=== PATIENT | male | born 1950 | race Caucasian/White ===

== ENCOUNTER 2018-03-01 18:37 | Emergency (ER) | payer MEDICARE ==
[~2018-03-01] VITALS: Ht 190.5 cm; Wt 131.5 kg
[~2018-03-01 18:37] MED LIST: ACTOS15 MG PO; ASA81BEC PO; ASPIRIN EC81 M1 PO; ASPIRIN81 M2 PO; B12; BACTRIM DS TAB1 EACH PO; CARISOPRODOL 3350 MG PO; CIPROFLOXACIN500 M1 PO; FLOMAX0.4 MG PO; FOLIC ACID 40400 MC1 PO; GLUCOPHAGE1000 MG PO; HYDROCODON-ACE1 EAC7 PO; HYDROCODON-ACE1 EAC8 PO; HYOSCYAMIN125 MCG/5 PO; LIPITOR20 MG PO; LISINOPRIL20 MG; LISINOPRIL20 MG PO; MAGOX 400400 MG PO; PERCOCET 5-3251 EACH PO; PIOGLITAZONE15 MG PO; POTASSIUM CITRATE PO; TAMSULOSIN HCL0.4 M1 PER TUBE; TAMSULOSIN HCL0.4 M1 PO; VICODIN 5-5001 EACH PO; VITAMIN B-12500 MC4 PO; VITAMIN B-12500 MCG PO
[2018-03-01] MEDS ORDERED: PREDNISONE 10 M10 M1 PO (22:38)
[2018-03-01] MEDS ORDERED: PERCOCET 5-3251 EACH PO (22:38)
[2018-03-01] MEDS ORDERED: FLEXERIL PO (22:38)
[2018-03-01 22:55] VITALS: BP 136/78
--- NOTE | 2018-03-02 10:57 | EKG ---
[place] [address] ELECTROCARDIOGRAM REPORT Name: HARRIET FIGUEROA Room: [facility]#: [id number] Admission: 03/01/18 Attend Phys: Discharge: 03/01/18 Date of : 46 Report #: [id number] THIS REPORT FOR: //name// [facility] ED Test Date: 2018-03-01 Test Time: 19:44:46 Pat Name: HARRIET FIGUEROA Department: Room: Gender: Monitoring Engineer: MALGORZATA Armstrong : 1950 Requested By: Adriane Swain Order Number: [id number] MD: Levar Aguila Measurements Intervals [place] Rate: 68 P: -2 VT: 186 QRS: 26 QRSD: 96 T: 34 QT: 388 QTc: 413 Interpretive Statements Sinus rhythm Low voltage, precordial leads Baseline wander in lead(s) V2 Compared to ECG 12/16/2013 10:51:11 no change Electronically Signed On 03-02-2018 10:57:41 CDT by Levar Aguila [email or web address] <ELECTRONICALLY SIGNED> By: Levar Aguila MD, [facility] 03/02/18 1057 43 43 Levar Aguila MD, [facility] /EPI
== END 2018-03-01 22:56 | disposition home or self-care (01) ==
LOC: M.ERS 18:37
DX: S46.911A Strain of unspecified muscle, fascia and tendon at shoulder and upper arm level, right arm, initial encounter (principal); E11.9 Type 2 diabetes mellitus without complications; I10 Essential (primary) hypertension; Z87.442 Personal history of urinary calculi; X58.XXXA Exposure to other specified factors, initial encounter; Y93.89 Activity, other specified; Y92.89 Other specified places as the place of occurrence of the external cause; Y99.8 Other external cause status

== ENCOUNTER 2018-03-03 16:49 | Emergency (ER) | payer MEDICARE ==
[~2018-03-03] VITALS: Ht 190.5 cm; Wt 176.9 kg
[~2018-03-03 16:49] MED LIST changes: +FLEXERIL PO; +PREDNISONE 10 M10 M1 PO
[2018-03-03] MEDS ORDERED: PERCOCET 5-3251 EACH PO (18:50)
[2018-03-03 19:22] VITALS: BP 139/75
== END 2018-03-03 19:24 | disposition home or self-care (01) ==
LOC: M.ERS 16:49
DX: M25.511 Pain in right shoulder (principal); I10 Essential (primary) hypertension; E11.9 Type 2 diabetes mellitus without complications; Z87.442 Personal history of urinary calculi

== ENCOUNTER 2018-03-05 04:00 | Inpatient (IN) | payer MEDICARE ==
[~2018-03-05] VITALS: Ht 190.5 cm; Wt 196.4 kg
[2018-03-05 04:13] VITALS: BP 200/92
[2018-03-05 04:46] LABS: ABSOLUTE BASOPHILS 0.1 thou/uL (0.0-0.2); ABSOLUTE LYMPHOCYTES 1.2 thou/uL (0.8-5.3); ABSOLUTE MONOCYTES 1.1 thou/uL (0.0-1.2); ABSOLUTE NEUTROPHILS 8.6 thou/uL (1.6-8.1); BASOPHILS 0.5 %; EOSINOPHILS 0.4 %; HEMATOCRIT 39.6 % (42.0-52.0); HEMOGLOBIN 13.3 gm/dL (14.0-18.0); LYMPHOCYTES 11.2 %; MCH 28.9 pg (26.0-34.0); MCHC 33.7 g/dL (28.0-37.0); MONOCYTES 9.9 %; MPV 8.2 fl. (7.2-11.1); NUCLEATED RBCS 0 /100WBC; PLATELET COUNT* 249 thou/uL (150-400); RBC 4.61 mil/uL (4.50-6.00); RDW-CV 15.6 % (10.5-14.5); WBC 11.1 thou/uL (4.0-11.0)
[2018-03-05 04:53] LABS: ANION GAP 10 mmol/L (7-16); BUN 31 mg/dL (7-18); CALCIUM 9.4 mg/dL (8.5-10.1); CHLORIDE 98 mmol/L (98-107); CO2 25 mmol/L (21-32); CREATININE 1.4 mg/dL (0.6-1.3); GLUCOSE 167 mg/dL (70-99); POTASSIUM 4.6 mmol/L (3.5-5.1); SODIUM 133 mmol/L (136-145)
[2018-03-05 05:00] LABS: ALBUMIN 3.2 g/dL (3.4-5.0); ALKALINE PHOSPHATASE 108 U/L (46-116); LIPASE 120 U/L (73-393); MAGNESIUM 1.7 mg/dL (1.8-2.4); SGOT 29 U/L (15-37); SGPT 41 U/L (30-65); TOTAL BILIRUBIN 0.9 mg/dL (<0.1-1.0); TOTAL PROTEIN 8.7 g/dL (6.4-8.2); TROPONIN-I LEVEL <0.06 ng/mL (<0.06)
[2018-03-05 06:00] VITALS: BP 144/86
--- NOTE | 2018-03-05 06:45 | NUR ---
LAUREN ARRIVED ON UNIT AT APPROX 0630. ALERT AND ORIENTED TIMES FOUR. SPOUSE AT BEDSIDE. SIGNIFICANT COMPLAINTS OF PAIN IN HIS RIGHT SHOULDER. GLASS FURNACE OPERATOR COMLETED DOCUMENTED. ORTHO CONSULT CALLED. PATIENT ABLE TO AMBULATE TO THE RESTROOM INDEPENDENTLY. UNABLE TO OBTAIN BED WEIGHT PATIENT IS SITTING ON THE EDGE OF THE BED.
[2018-03-05 06:49] VITALS: BP 190/100
[2018-03-05 07:30] VITALS: BP 155/72
--- NOTE | 2018-03-05 11:19 | NUR ---
Pt is A&O. Resides at home with his , very active and independent. No DME. No hx of HH or SNF. Ortho consulted. Pt states that he is too big to have an MRI. Goal is to return home once medically stable for dc. Following.
[2018-03-05 11:37] VITALS: BP 122/71
--- NOTE | 2018-03-05 14:25 | EKG ---
[place] [address] ELECTROCARDIOGRAM REPORT Name: HARRIET FIGUEROA Room: [address] IN .R.#: [id number] Admission: 03/05/18 Attend Phys: Charleen Martell MD Discharge: Date of : 46 Report #: [id number] THIS REPORT FOR: //name// [facility] ED Test Date: 2018-03-05 Test Time: 04:53:54 Pat Name: HARRIET FIGUEROA Department: Room: Gender: Advertising Copy Writer: : 1950 Requested By: Fei Martines Order Number: [id number] MD: Angel Wood Measurements Intervals [place] Rate: 78 P: 10 AR: 177 QRS: 19 QRSD: 97 T: 13 QT: 341 QTc: 389 Interpretive Statements Sinus rhythm Low voltage, precordial leads Compared to ECG 03/01/2018 19:44:46 No significant changes Electronically Signed On 03-05-2018 14:24:59 CDT by Angel Wood [email or web address] <ELECTRONICALLY SIGNED> By: Angel Wood MD, [facility] 03/05/18 1424 0453 [id number] Angel Wood MD, [facility] /EPI
--- NOTE | 2018-03-05 19:22 | NUR ---
PATIENT PROGRESSING TOWARDS GOALS. PAIN BETTER CONTROLLED THIS SHIFT. TOLERATING HIS DIET WELL WITHOUT ANY NAUSEA OR VOMIITNG. UP AD NESTOR IN ROOM WITH BATHROOM PRIVILEDGES. GAIT IS STEADY. HE DENIES ANY SOA. ORTHO IN THIS AFTERNOON TO DO STEROID INJECTION INTO PATIENTS RIGHT SHOULDER. CONSENT WAS SIGNED AND PLACED ON PATIENTS CHART. PLANNING FOR DC TOMORROW IF STABLE. HOURLY ROUNDING CHARTED. CALL LIGHT WITHIN REACH. WILL CONTIUE TO MONITOR.
[2018-03-05 20:00] VITALS: BP 147/91
[2018-03-06 00:04] VITALS: BP 168/91
--- NOTE | 2018-03-06 06:06 | NUR ---
ASSUMED PATIENT CARE AT 1900. PATIENT ALERT AND ORIENTED TIMES FOUR. COMPLAINTS OF PAIN, UNCONTOLLED WITH IV PAIN MEDICATION. DR NOTIFIED. NORMAT UP AD NESTOR AND IS ABLE TO AMBULATE TO THE NURSING STATION AND ALSO TO PERFORM ALL SELF CARE NEEDS INDEPENDENTLY. MECHANICAL MAINTENANCE INSTRUCTOR COMPLETED DOCUMENTED. HOURLY ROUNDING COMLETED CHATED.
[2018-03-06 07:30] VITALS: BP 149/82
[2018-03-06 07:50] LABS: HEMATOCRIT 40.7 % (42.0-52.0); HEMOGLOBIN 13.9 gm/dL (14.0-18.0); MCH 29.6 pg (26.0-34.0); MCHC 34.2 g/dL (28.0-37.0); MCV 86.7 fL (80.0-100.0); MPV 8.2 fl. (7.2-11.1); NUCLEATED RBCS 0 /100WBC; PLATELET COUNT* 251 thou/uL (150-400); RBC 4.69 mil/uL (4.50-6.00); RDW-CV 16.2 % (10.5-14.5); WBC 10.6 thou/uL (4.0-11.0)
[2018-03-06 07:57] LABS: CALCIUM 9.7 mg/dL (8.5-10.1); CREATININE 1.4 mg/dL (0.6-1.3); POTASSIUM 4.5 mmol/L (3.5-5.1)
[2018-03-06 08:27] LABS: ABSOLUTE LYMPHOCYTES 1.5 thou/uL (0.8-5.3); ABSOLUTE MONOCYTES 0.7 thou/uL (0.0-1.2); ABSOLUTE NEUTROPHILS 8.4 thou/uL (1.6-8.1); ANISOCYTOSIS 1+; PLATELET ESTIMATE ADEQUATE; POIKILOCYTOSIS 1+
[2018-03-06 12:26] VITALS: BP 156/89
[2018-03-06 15:38] VITALS: BP 120/75
--- NOTE | 2018-03-06 19:16 | NUR ---
PATIENT PARTIALLY PROGRESSING TOWARDS GOALS. PAIN BETTER CONTROLLED WITH PRN PAIN MEDICATIONS. NO COMPLAINTS OF SOA. NOTIFIED ORTHO ABOUT RIGHT UPPER EXTREMITY CT SCAN. PATIENT IS TOLERATING HIS DIET WELL WITHOUT NAUSEA OR VOMITING. HE IS UP AD NESTOR IN HIS ROOM WITH BATHROOM PRIVILEDGES. GAIT IS STEADY. IV CLOTTED OFF THIS AFTERNOON. 3 NURSES ATTEMPTED TO RESTART BUT UNSUCCESSFUL. ARTILLERY SPECIALIST NOTIFIED AND WILL COME ATTEMPT AN IV THIS EVENING. PATIENTS ASSISTED PATIENT IN TAKING A SHOWER THIS EVENING WELL. HOURLY ROUNDING CHARTED. CALL LIGHT WITHIN REACH. WILL CONTINUE TO MONITOR.
[2018-03-06 20:00] VITALS: BP 122/75
[2018-03-06 23:26] VITALS: BP 136/77
[2018-03-07 05:30] LABS: HEMATOCRIT 38.7 % (42.0-52.0); MCH 29.2 pg (26.0-34.0); MCHC 33.7 g/dL (28.0-37.0); MCV 86.7 fL (80.0-100.0); MPV 8.1 fl. (7.2-11.1); RBC 4.47 mil/uL (4.50-6.00); RDW-CV 15.5 % (10.5-14.5); WBC 12.3 thou/uL (4.0-11.0)
--- NOTE | 2018-03-07 06:16 | NUR ---
ALERT AND ORIENTED X 4, UP TO BATHROOM INDEPENDENTLY. IV PAIN MEDS X 2 DURING THIS SHIFT. IV STARTED BY HEALTH AND SAFETY SPECIALIST IN RT AC. CONT. TO MONITOR PAIN. NO SIGN OF DISTRESS AT THIS TIME. BED IN LOW POSITION, CALL LIGHT IN REACH.
[2018-03-07 07:30] VITALS: BP 156/78
[2018-03-07 09:29] LABS: CALCIUM 9.4 mg/dL (8.5-10.1); CREATININE 1.4 mg/dL (0.6-1.3); POTASSIUM 4.4 mmol/L (3.5-5.1)
[2018-03-07 10:21] VITALS: BP 156/78
[2018-03-07 11:57] VITALS: BP 161/84
--- NOTE | 2018-03-07 17:39 | NUR ---
ASSUMED CARE OF PATIENT ATER TRANSFER OF CARE FROM TELEMETRY VIA PACU. PATIENT ARRIVED ON THE UNIT AT 1535. ALERT AND ORIENTED X4, VSS ON 3 LITERS 02 NASAL CANULA. WOUNDS NOTED ON THE PATIENT UNDER THE PANUS AND ON THE LEFT THIGH, PICTURES TAKEN FOR DOCUMENTAION AND ARE IN THE CHART. PATIENT HAS HAD NO COMPLAINTS OF PAIN, NAUSEA OR SOA. HOURLY ROUNDS, CALL LIGHT WITHIN REACH, NURSING WILL CONTINUE TO MONITOR.
[2018-03-07 20:45] VITALS: BP 137/75
[2018-03-07 23:52] VITALS: BP 130/71
[2018-03-08 04:00] VITALS: BP 144/81
[2018-03-08 04:46] LABS: HEMATOCRIT 40.2 % (42.0-52.0); HEMOGLOBIN 12.8 gm/dL (14.0-18.0); MCH 29.1 pg (26.0-34.0); MCHC 31.9 g/dL (28.0-37.0); MCV 91.2 fL (80.0-100.0); MPV 8.5 fl. (7.2-11.1); RBC 4.41 mil/uL (4.50-6.00); RDW-CV 16.5 % (10.5-14.5); WBC 9.6 thou/uL (4.0-11.0)
[2018-03-08 04:47] LABS: CALCIUM 9.1 mg/dL (8.5-10.1); CREATININE 1.4 mg/dL (0.6-1.3); MAGNESIUM 1.9 mg/dL (1.8-2.4); POTASSIUM 4.6 mmol/L (3.5-5.1)
--- NOTE | 2018-03-08 04:59 | NUR ---
PATIENT REMAINS ALERT AND ORIENTED X4 THROUGHOUT SHIFT. VITAL SIGNS STABLE ON 3 LITERS OF OXYGEN. CAPNO IN PLACE. IV PATENT AND SALINE LOCKED IN THE LEFT HAND. TRANSFERS WITH ASSIST X1-2 TO CHAIR AND BEDSIDE COMMODE. BILATERAL CALF SCD'S IN PLACE. SLING APPLIED TO RIGHT ARM. REPOSITIONING SELF. CHOSE TO SLEEP IN RECLINER FOR THE NIGHT. PAIN MANAGED WITH PO MEDICATION PER ORDERS. DENIES NAUSEA. REPOSITIONING SELF. HOURLY ROUNDING COMPLETE. FALL PRECAUTIONS IN PLACE. BED AND CHAIR ALARM IN PLACE. CALL LIGHT WITHIN REACH. NURSING WILL CONTIUE TO MONITOR.
[2018-03-08 08:00] VITALS: BP 121/67
[2018-03-08 09:09] LABS: ANA INTERPRETATION Negative (Negative)
--- NOTE | 2018-03-08 14:38 | CON ---
[address] [address] CONSULTATION Name: HARRIET FIGUEROA Room: [address] IN .R.#: [id number] Admission: 03/05/18 Attend Phys: Charleen Martell MD Discharge: Date of : 46 Report #: [id number] THIS REPORT FOR: //name// CC: Levar Martell DATE OF SERVICE: 03/07/2018 ATTENDING PHYSICIAN: Dr. Charleen Martell. REASON FOR EVALUATION: Suspected deep infection involving right shoulder. HISTORY OF PRESENT ILLNESS: Chart reviewed, the patient examined. This is a 68-year-old with diabetes mellitus who had onset of shoulder pain several days prior to admission. He denies any antecedent injury. It is not clear if he has had any significant systemic signs or symptoms. No fevers, shaking chills, sweats. No anorexia. He has been seen in the Emergency Room on several occasions in the interim and was ultimately admitted. Imaging with CT showed cellulitis and possible myositis along the anterior shoulder and upper arm with gas deep to the anterior and lateral head of the deltoid. Sed rate was 100, high-sensitivity CRP was greater than 300. He is scheduled to undergo operative debridement. He was started initially on Unasyn empirically. At this point, he is not toxic, denies significant pulmonary or gastrointestinal related complaints. ALLERGIES: None known. MEDICATIONS: Include the Unasyn, oxycodone, prednisone, hydromorphone, pantoprazole, enoxaparin, amlodipine, p.r.n. analgesics. PAST MEDICAL HISTORY: In addition to the diabetes mellitus, hypertension, renal lithiasis. SOCIAL HISTORY: Nonsmoker, no ethanol. FAMILY HISTORY: Noncontributory. REVIEW OF SYSTEMS: As above. PHYSICAL EXAMINATION: GENERAL: He is morbidly obese. He is pleasant, cooperative, mild to moderate distress, sitting at the side of the bed. VITAL SIGNS: Temperature 98.2, pulse 98, respirations 16, blood pressure 161/84. SKIN: Warm, dry, no rashes. HEENT: Otherwise, [place] [address] CONSULTATION Name: HARRIET FIGUEROA Room: [address] IN [facility]#: [id number] Admission: 03/05/18 Attend Phys: Charleen Martell MD Discharge: Date of : 46 Report #: [id number] NECK: Supple. Right shoulder is palpably tender, although not exquisitely so. He is splinting it, minimizing movement. LUNGS: Diminished breath sounds. HEART: Regular. Borderline tachycardic. I do not appreciate any murmur. ABDOMEN: Soft, nontender. There are no peritoneal signs. GENITOURINARY AND RECTAL: Deferred. LABORATORY DATA: Initial CBC: White count 11.1, H and H 13.3 and 39.6, platelets of 249. Electrolytes: Sodium 133, potassium 4.6, chloride 98, bicarbonate 25, BUN and creatinine 31 and 1.3, glucose of 167. LFTs unremarkable. Albumin 3.2, total protein is 8.7. Chest x-ray: Mild bibasilar densities, raising question of atelectasis. Uric acid 5.8. Sed rate as noted above of 100. ASSESSMENT: Inflammatory process involving the right shoulder. I certainly do not have an alternative diagnosis, is concerning for infectious etiology, would raise question of a bacteremic spread, and has been started on Unasyn. There was no blood culture collected thus far, but we are going to do that. Certainly, there can be concern about Staph aureus in this setting. We will await findings at surgery and add incentive spirometry. <ELECTRONICALLY SIGNED> By: Elmer Gómez MD 03/08/18 1438 1224 [id number] Gómez MD /nt
[2018-03-08 15:57] VITALS: BP 133/76
--- NOTE | 2018-03-08 19:54 | NUR ---
I ASSUMED CARE OF THE PATIENT AT 0700. HE IS ALERT AND ORIENTED X4 AND IS UP AD NESTOR. BED IS IN THE LOW LOCKED POSITION AND CALL LIGHT IS IN REACH. PAIN IS MANAGED WITH PRN MEDS AND HOURLY ROUNDING HAS BEEN COMPLETED AND PATIENT NEEDS ARE MET. HE PREFERS TO BE CALLED 'JENNIFER.' IS AT THE BEDSIDE MOST OF THE DAY. DR PULLIAM AND DR CASILLAS WOULD LIKE TO MONITOR BLOOD CULTURES FOR ONE MORE DAY. HE HAD A BM ON 03/06/18 AND IS PASSING GAS. WILL CONTINUE TO MONITOR.
[2018-03-08 20:05] VITALS: BP 152/58
[2018-03-08 23:33] VITALS: BP 150/87
[2018-03-09] VITALS: BP 150/87
--- NOTE | 2018-03-09 03:12 | NUR ---
ASSUMED CARE OF PT AT 1900. PT IS ALERT AND ORIENTED. VSS. PERRLA. PT REPORTS ONGOING PAIN IN HIS RIGHT SHOULD. PT IS RECIEVING HYDROCODONE AND OXYCODONE FOR PAIN. AT 2240, PT WAS WALKING TO USE THE RESTROOM WHEN HE SLIPPED BY THE BATHROOM DOOR AND FELL. THERE WHERE NO OBSTACLES IN THE WAY, NOR WAS THE FLOOR WET. IN ADDITION, PT HAD HIS YELLOW NON SKID SOCKS ON. PT STATES, "I JUST SLIPPED". PT WAS UNABLE TO GET OFF THE FLOOR SO WE USED THE LIFT TO GET HIM BACK TO THE BED. PT WAS ASSESSED FOR INJURY. AN ABRASION WAS FOUND ON HIS LEFT LATERAL SIDE AND BELOW HIS LEFT SHOULDER BLADE. PT DENIED ANY MUSKOSKELETOL PAIN. ALSO, ROM OF MOTION STILL INTACT. AND SUPERVISER NOTIFIED.
[2018-03-09 03:25] VITALS: BP 144/76
[2018-03-09 07:50] VITALS: BP 151/84
--- NOTE | 2018-03-09 07:57 | OP ---
[address] [address] OPERATIVE REPORT Name: CAROLINAHARRIET Quinn Room: [address] IN M.R.#: [id number] Admission: 03/05/18 Attend Phys: Charleen Martell MD Discharge: Date of : 46 Report #: [id number] THIS REPORT FOR: //name// CC: Levar Martell DICTATED BY: Damien Null DATE OF SERVICE: 03/07/2018 PREOPERATIVE DIAGNOSES: Subdeltoid air of the right shoulder, possible septic arthritis and myositis. POSTOPERATIVE DIAGNOSES: Right shoulder massive rotator cuff tear, biceps subluxation, synovitis and doubtful septic arthritis with no purulence. SURGERY PERFORMED: Right shoulder arthroscopic lavage, biceps tenotomy, rotator cuff debridement, subacromial decompression and intraoperative cultures x 2. SURGEON: Uday Nichols DO. DYNAMICS AX CONSULTANT: Damien Null DO. ANESTHESIA: General. ESTIMATED BLOOD LOSS: 2 mL. SPECIMENS: Cultures x 2 from a right shoulder joint. COMPLICATIONS: None. DRAINS: None. CONDITION: The patient is stable to PACU. INDICATIONS: The patient is a 68-year-old male who has had a little over a week of right shoulder pain, which has been worsening. He is admitted to [facility] for this pain. Initially, he was found to have a white blood cell elevation; however, CT one day after a shoulder injection revealed gas in the subdeltoid area, possible myositis. His inflammatory markers were also elevated, and his white count eventually elevated as well. Due to the findings on the CT and continued pain in the right shoulder, we recommended an arthroscopic right shoulder irrigation and debridement. Discussing the risks, benefits, complications, alternatives, indications, he says he is willing to proceed. Consent [place] [address] OPERATIVE REPORT Name: HARRIET FIGUEROA Room: [address] IN [facility].#: [id number] Admission: 03/05/18 Attend Phys: Charleen Martell MD Discharge: Date of : 46 Report #: [id number] FINDINGS: Surgeon's inspection of the right shoulder arthroscopically showed no gross purulence. There was extensive synovitis and inflammatory tissue as well as a massive rotator cuff tear of the supraspinatus, infraspinatus. There is also a subscapularis tear and subsequent subluxation of the biceps tendon. Cartilage was overall in good condition. No evidence of acute chondrolysis. There is extensive bursal tissue in the subacromial space with no evidence of purulence there as well. DESCRIPTION OF PROCEDURE: The patient was seen in preoperative holding area, and the operative site initialed by surgeon. He was brought back to operative suite, placed on a well-padded table in supine position. General anesthesia was induced. The patient was then positioned on the left lateral decubitus position with the operative side up. All extremities were well padded and supported with a beanbag. Axillary roll was placed. The arm was positioned in the arthroscopic arm mejia, and the right shoulder was sterilely prepped and draped in normal fashion. Timeout was performed in usual fashion, all attendants were in agreement. A 15 blade scalpel was used to make a posterior portal incision. A blunt trocar was used to access the glenohumeral joint. Camera was introduced, and the shoulder was insufflated with normal saline. There is no joint effusion and so some of the synovial lavage fluid was placed into a specimen cup for culture. Two cultures were obtained. Diagnostic arthroscopy was performed with the above-mentioned findings. A spinal needle was used for localization of the anterior portal site. A 15 blade scalpel was used to incise the skin. Blunt trocar was used to access the joint anteriorly. Shaver was introduced, and a synovectomy was performed as well as a debridement of the rotator cuff tear from the joint surface. The arthroscopic scissors was introduced, and a biceps tenotomy was performed. The camera was removed, and blunt trocar was used to access the subacromial space. Camera was introduced, and the space was insufflated with normal saline. Spinal needle was used for localization of lateral portal site, and a 15 blade scalpel was used to incise the skin. Blunt trocar was used to access the space. A shaver was introduced, and a subacromial decompression was performed. A radiofrequency ablator was also used for hemostasis. Extensive bursal tissue was removed showing the large rotator cuff tear deep to the bursal tissue. Once again, no evidence of infectious process in this area. Rotator cuff tear was further debrided. The shoulder was drained of saline, and instruments were removed. Skin incisions were closed with a 4-0 nylon in simple interrupted fashion. Dressings were placed in the form of Xeroform gauze, 4 x 4s, ABDs and tape. The patient was awoken and brought to PACU in stable fashion. Sponge and needle counts were correct x 2. Dr. Nichols was present throughout the critical aspects of surgery. The patient tolerated the procedure well. <ELECTRONICALLY SIGNED> By: Uday Nichols DO 03/09/18 0757 1417 Mary Nichols DO /nt
--- NOTE | 2018-03-09 11:35 | NUR ---
Nutrition: Pt seen for high BMI. Wt: 433#. Wounds under panus. He stated his DM is under control. He follows a low Na diet at home d/t CKD III. He wants to add yogurt to lunch - RD ordered for him. He also wound like less CHOs with his meals. Discussed CHO count diet order - pt agrees. RD will order 2gm Na diet with a CHO count added. Otherwise, appears at mild nutrition risk. BMI is skewing risk. Will follow up per protocol.
[2018-03-09 16:05] VITALS: BP 149/80
--- NOTE | 2018-03-09 16:34 | NUR ---
ALDO faxed information to [facility] fax [phone] to check benefits for IV antibiotics for home and faxed initial referral information to [facility] [phone] ph [phone] for HH nurse IV abx care. ALDO received call back from [facility] and spoke with Royce [phone] who stated pt would be responsible to pay $261.77 per week. ALDO received call back from Tana at [facility] who said they received referral and could accept. ALDO spoke with pt and pt to provide information about cost and pt and pt opted to go to OP for IV antibiotics even if order remains for pt to go to OP IV abx every 8 hrs. ALDO called OP infusion at [phone] and left a message for referral. SW to continue to follow...no other dc needs besides OP IV antibiotics. If pt changes his mind or needs HH and home infusion instead, [facility] and [facility] have the referrals and info needed to provide services. Pt first preference is OP IV abx.
--- NOTE | 2018-03-09 18:58 | NUR ---
PT VSS THIS SHIFT. PT APPROPRIATELY CALLS OUT FOR PAIN MANAGEMENT. PT TOLERATING DIET AND RA THIS SHIFT. PT SHOWS NO COMPLICATIONS FROM FALL ON THE PREVIOUS SHIFT. PT ABLE TO AMBULATE WITH MAXIMUM ASSIST THIS SHIFT. PT HAS NO GI/ CONCERNS THIS SHIFT
[2018-03-09 20:00] VITALS: BP 145/85
[2018-03-10 00:30] VITALS: BP 157/85
[2018-03-10 03:54] LABS: HEMOGLOBIN 12.4 gm/dL (14.0-18.0); MCH 29.1 pg (26.0-34.0); MCHC 34.4 g/dL (28.0-37.0); MPV 7.6 fl. (7.2-11.1); RBC 4.25 mil/uL (4.50-6.00); RDW-CV 15.4 % (10.5-14.5); WBC 10.8 thou/uL (4.0-11.0)
[2018-03-10 03:55] LABS: MCV 84.7 fL (80.0-100.0)
[2018-03-10 04:05] LABS: CALCIUM 8.9 mg/dL (8.5-10.1); CREATININE 1.4 mg/dL (0.6-1.3); MAGNESIUM 1.8 mg/dL (1.8-2.4); POTASSIUM 4.1 mmol/L (3.5-5.1)
--- NOTE | 2018-03-10 05:23 | NUR ---
ASSUMED PT CARE AT 1930, PT IS ON RA SATTING MID TO HIGH 90'S. PT IS UP WITH ONE TO THE BR. PT STATES HE WANTED TO SLEEP IN THE RECLINER TONIGHT. DESPITE EDUCATION. PT HAS A BANDAGE TO RIGHT SHOULDER. DRESSING IS CDI. PT C/O PAIN THORUGHOUT THE SHIFT. PRN PAIN MEDICATIONS GIVEN PER DEC. CALL LIGHT IN REACH, CHAIR ALARM ON. HOURLY ROUNDING COMPLETED FOR PT SAFETY.
[2018-03-10 08:00] VITALS: BP 135/73
--- NOTE | 2018-03-10 10:23 | NUR ---
Discussed disposition with Pt. Informed that he would not be able to do outpt infusion d/t his IVABX needing to be administered q 8hrs. Informed that only options are for him to do home with IVABX or skilled. Pt's to be here later this morning, CM to go back and discuss options when she arrives. Following.
[2018-03-10 16:00] VITALS: BP 167/92
[2018-03-10 20:40] VITALS: BP 126/73
--- NOTE | 2018-03-10 20:55 | NUR ---
I ASSUMED CARE OF THE PATIENT AT 0700. HE IS ALERT AND ORIENTED X4 AND UP WITH STAND BY ASSIST. HOURLY ROUNDING WAS COMPLETED AND PATIENT NEEDS WERE MET. PAIN IS MANAGED WITH PRN PAIN MEDS. IS AT THE BEDSIDE. BED IS IN THE LOW LOCKED POSITION AND PATIENT SLEEPS IN THE RECLINER. PATIENT WILL NEED A PICC LINE TO BE PLACED AND WITH NO POLICY, IT IS ONLY DONE M-F. CASE MANAGEMENT IS WORKING ON PLACEMENT THAT WILL BE COVERED BY INSURANCE FOR ANTIBIOTIC TREATMENT. WILL CONTINUE TO MONITOR.
--- NOTE | 2018-03-11 04:36 | NUR ---
PATIENT HAS REMAINED ALERT AND ORIENTED X 4 THROUGHOUT THE SHIFT. HAS SLEPT IN RECLINER TONIGHT. FOUND AT TIMES WITH LEGS DOWN. NOTING BILAT LE EDEMA. PATIENT ENCOURAGED TO KEEP FOOT SUPPORT UP OR TRY SLEEPING IN THE BED. DID NOT WANT TO SLEEP IN BED AND AGREED TO KEEP LEGS UP. REFUSED SCD'S. RIGHT SHOULDER DRESSING FALLING OFF. REPLACED WITH THREE LARGE BANDAIDS OVER THE 3 SITES WITH SUTURES. NO DRAINAGE. MEDICATED FOR PAIN X 1. ANTIBIOTICS PROVIDED PER ORDERS. VITAL SIGNS STABLE. CONTINUE TO MONITOR.
[2018-03-11 07:45] VITALS: BP 136/72
[2018-03-11 16:00] VITALS: BP 141/67
--- NOTE | 2018-03-11 16:55 | NUR ---
PATIENT REMAINS ALERT AND ORIENTED. PAIN POORLY CONTROLLED ON PO THIS AFTERNOON. PAIN COMPLETELY RELIEVED WITH DILAUDID. NEW IV PLACED IN LEFT HAND. PATIENT TO GET PICC TOMORROW. WORKED WITH PT. SHOWERED THIS AFTERNOON. BED/CHAIR ALARM IN USE. PATIENT EDUCATED ON FALL PREVENTION. SSI GIVEN ORDERED. TOLERATING MEALS. WILL CONTINUE TO MONITOR.
[2018-03-11 19:45] VITALS: BP 150/83
--- NOTE | 2018-03-12 04:48 | NUR ---
PATIENT HAS REMAINED ALERT AND ORIENTED X 4 THROUGHOUT THE SHIFT AND RESTING QUIETLY ON HOURLY ROUNDS. WAS ABLE TO REST FOR SEVERAL HOURS IN THE BED TONIGHT. PRESENTLY SLEEPING IN RECLINER. [facility]. RIGHT SHOULDER BANDAIDS CLEAN AND DRY X 3. USING SLING RUE. MEDICATED FOR PAIN X 2 OF THIS WRITING WITH IV PAIN MEDICATION TO GOOD EFFECT. ANTIBIOTICS PER ORDERS. VITAL SIGNS STABLE. CONTINUE TO MONITOR.
[2018-03-12 05:07] LABS: HEMATOCRIT 37.1 % (42.0-52.0); HEMOGLOBIN 12.3 gm/dL (14.0-18.0); MCH 28.4 pg (26.0-34.0); MCHC 33.1 g/dL (28.0-37.0); MCV 85.8 fL (80.0-100.0); MPV 7.6 fl. (7.2-11.1); RBC 4.33 mil/uL (4.50-6.00); RDW-CV 15.4 % (10.5-14.5); WBC 12.6 thou/uL (4.0-11.0)
[2018-03-12 05:24] LABS: ALBUMIN 2.5 g/dL (3.4-5.0); CALCIUM 8.5 mg/dL (8.5-10.1); CREATININE 1.2 mg/dL (0.6-1.3); MAGNESIUM 1.6 mg/dL (1.8-2.4); POTASSIUM 4.3 mmol/L (3.5-5.1); TOTAL BILIRUBIN 0.8 mg/dL (<0.1-1.0); TOTAL PROTEIN 6.9 g/dL (6.4-8.2)
[2018-03-12 08:00] VITALS: BP 142/68
[2018-03-12] MEDS ORDERED: CEFAZOLIN2 GM/50 M2 IV (12:14)
[2018-03-12] MEDS ORDERED: HYDROCODONE-AP1 EAC6 PO (12:15)
[2018-03-12 12:16] VITALS: BP 142/68
--- NOTE | 2018-03-12 12:37 | NUR ---
PT.BACK FROM PICC LINE INSERTION. LINNETTE,RN SAID XRAY CONFIRMS SY. CM SPOKE WITH PT. ABOUT GOING TO SNF FOR IVAB. HE SAID HIS FIRST CHOICE WOULD BE [facility]. HE HAS RECOMMENDATIONS FROM A FRIEND. CM SPOKE WITH [facility] AND FAXED HER REFERRAL. PT.IS READY FOR DISCHARGE TODAY.
--- NOTE | 2018-03-12 13:19 | NUR ---
[facility] SAID THEY CAN ACCEPT PT.TO A SKILLED BED TODAY. INFORMED HER NEXT IV [facility] WILL BE AT 10PM. THEIR [facility] WILL PICK HIM UP AT 3:00. WILL FAX ORDERS TO [facility]. CHART COPIED TO GO WITH PT. NURSING WILL CALL REPORT. PT.INFORMED. HE WILL LET HIS KNOW.
--- NOTE | 2018-03-12 14:14 | NUR ---
OUT TO DESK TO ASK ABOUT DISCHARGE PLANS. EDUCATED ON DISCHARGE AND THAT [facility] CAN ACCEPT HIM AND THEY WILL PICK HIM UP AT 1500. ANSWERED QUESTIONS ABOUT CLOTHING,MEDS,ETC. GAVE HER THE PHONE NUMBER FOR [facility].
--- NOTE | 2018-03-12 14:30 | NUR ---
ARRIVED TO INFUSION PER [facility]. TRANSFERED SELF TO CART. SPOKE WITH PT REGUARDING PICC RISK AND BENIFIT. VOICED UNDERSTANDING AND CONSENT SIGNED. ORDER NOTED. LEFT UPPER BASILIC IDENTIFIED WITH ULTRASOUND AND NOTED TO BE WIDLEY PATENT. SINGLE LUMAN POWER PICC PLACED WTIH OUT DIFFICULTY TO LEFT UPPER BASILIC PER HOSPITAL POLICY. LINE HAS GOOD BRISK BLOOD RETURN AND EASY FLUSH. LINE WAS NOT TRIMMED AND ADVANCED TO 55CM AND HUBBED. Ampex 3CG USED. UNABLE TO PRINT FROM THUMB DRIVE SO X-RAY TAKEN. SHOWS TIP IS SHORT. LINE ADVANCED TO HUB AND RE X-RAY. 2ND XRAY REPORT SHOWS TIP IN OK POSITION FOR USE. LINE WAS SECURED AND RELEASED FOR USE. GARETH GAMING AWARE.
--- NOTE | 2018-03-12 14:58 | NUR ---
REPORT CALLED TO ELSI AT THE [facility].
--- NOTE | 2018-03-12 15:15 | NUR ---
PATIENT DISCHARGED TO [facility] AT THIS TIME VIA [facility]. PICC IN PLACE AND FUNCTIONING. 1400 ANCEF INFUSED PRIOR TO DC. PERIPHERAL IV DC'D. REPORT TO ELSI. WENT TO [facility] BEFORE PATIENT TO DO PAPERWORK. COPY OF CHART SENT.
== END 2018-03-12 15:15 | DRG 463 ==
LOC: M.ERS 04:00 → M.2W 05:41 → M.TBA-ER 05:41 → M.2W 06:31 → M.ORTHSURG 03-07 16:52
PROVIDERS: Emergency Medicine Emergency Medical Services; Family Medicine; Internal Medicine; Orthopaedic Surgery; ADMIT Internal Medicine
PROC: 0L9 Tendons, Drainage (ICD-10-PCS; 2018-03-07)
PROC: 0JBD0ZZ Excision of Right Upper Arm Subcutaneous Tissue and Fascia, Open Approach (ICD-10-PCS; 2018-03-07)
PROC: 05H433Z Insertion of Infusion Device into Left Innominate Vein, Percutaneous Approach (ICD-10-PCS; principal; 2018-03-12)
DX: M75.01 Adhesive capsulitis of right shoulder (principal); G93.40 Encephalopathy, unspecified; E87.1 Hypo-osmolality and hyponatremia; M00.211 Other streptococcal arthritis, right shoulder; Z68.43 Body mass index [BMI] 50.0-59.9, adult; I12.9 Hypertensive chronic kidney disease with stage 1 through stage 4 chronic kidney disease, or unspecified chronic kidney disease; N18.3 Chronic kidney disease, stage 3 (moderate); E11.22 Type 2 diabetes mellitus with diabetic chronic kidney disease; E66.01 Morbid (severe) obesity due to excess calories; M75.101 Unspecified rotator cuff tear or rupture of right shoulder, not specified as traumatic; B95.4 Other streptococcus as the cause of diseases classified elsewhere; Z87.442 Personal history of urinary calculi; Z79.899 Other long term (current) drug therapy; Z79.82 Long term (current) use of aspirin

== ENCOUNTER 2020-05-13 20:43 | Emergency (ER) | payer MEDICARE ==
[~2020-05-13] VITALS: Ht 190.5 cm; Wt 200.5 kg
[~2020-05-13 20:43] MED LIST changes: +CEFAZOLIN2 GM/50 M2 IV; +HYDROCODONE-AP1 EAC6 PO
[2020-05-13] MEDS ORDERED: IBUPROFEN 800800 M1 PO (23:33)
[2020-05-13] MEDS ORDERED: FLEXERIL PO (23:33)
[2020-05-13] MEDS ORDERED: NORCO 5-325 TA1 EAC2 PO (23:33)
[2020-05-13] MEDS ORDERED: LIDODERM1 EACH TOP (23:33)
[2020-05-13 23:47] VITALS: BP 114/55
== END 2020-05-13 23:49 | disposition home or self-care (01) ==
LOC: M.ERS 20:43
DX: M54.5 Low back pain (principal); R07.81 Pleurodynia; I10 Essential (primary) hypertension; E11.9 Type 2 diabetes mellitus without complications; Z87.442 Personal history of urinary calculi; W18.39XA Other fall on same level, initial encounter; Y93.89 Activity, other specified; Y92.89 Other specified places as the place of occurrence of the external cause; Y99.8 Other external cause status

== ENCOUNTER 2020-06-07 09:58 | Emergency (ER) | payer MEDICARE ==
[~2020-06-07] VITALS: Ht 190.5 cm; Wt 158.8 kg
[~2020-06-07 09:58] MED LIST changes: +IBUPROFEN 800800 M1 PO; +LIDODERM1 EACH TOP; +NORCO 5-325 TA1 EAC2 PO
[2020-06-07] MEDS ORDERED: TRAMADOL 50 MG50 MG PO (10:15)
[2020-06-07] MEDS ORDERED: PIOGLITAZONE30 MG PO (10:15)
[2020-06-07] MEDS ORDERED: LEVO-T25 MCG PO (10:15)
[2020-06-07] MEDS ORDERED: DESYREL150 MG PO (10:15)
[2020-06-07] MEDS ORDERED: MAGNESIUM250 M1 PO (10:16)
[2020-06-07] MEDS ORDERED: FOLIC ACID1 MG PO (10:16)
[2020-06-07] MEDS ORDERED: OSTERA TABLET1 EAC1 PO (10:16)
[2020-06-07] MEDS ORDERED: B-125000 MC1 SUBLING (10:16)
[2020-06-07] MEDS ORDERED: LISINOPRIL-HCT1 EACH PO (10:16)
[2020-06-07] MEDS ORDERED: ASA81BEC PO (10:17)
[2020-06-07 10:47] LABS: ABSOLUTE BASOPHILS 0.1 thou/uL (0.0-0.2); ABSOLUTE EOSINOPHILS 0.2 thou/uL (0.0-0.7); ABSOLUTE LYMPHOCYTES 1.4 thou/uL (0.8-5.3); ABSOLUTE MONOCYTES 0.4 thou/uL (0.0-1.2); ABSOLUTE NEUTROPHILS 3.1 thou/uL (1.6-8.1); BASOPHILS 1.4 %; EOSINOPHILS 3.3 %; HEMATOCRIT 43.6 % (42.0-52.0); HEMOGLOBIN 15.4 gm/dL (14.0-18.0); LYMPHOCYTES 26.4 %; MCH 31.4 pg (26.0-34.0); MCHC 35.4 g/dL (28.0-37.0); MCV 88.6 fL (80.0-100.0); MONOCYTES 7.9 %; MPV 8.2 fl. (7.2-11.1); NUCLEATED RBCS 0 /100WBC; PLATELET COUNT* 220 thou/uL (150-400); RBC 4.92 mil/uL (4.50-6.00); RDW-CV 14.2 % (10.5-14.5); WBC 5.1 thou/uL (4.0-11.0)
[2020-06-07 10:54] LABS: URINE BLOOD 3+ (Negative); URINE CLARITY SL CLOUDY; URINE COLOR YELLOW; URINE GLUCOSE-RANDOM NEGATIVE (Negative); URINE KETONES NEGATIVE (Negative); URINE LEUKOCYTES-REFLEX NEGATIVE (Negative); URINE NITRITE-REFLEX NEGATIVE (Negative); URINE PROTEIN NEGATIVE (Negative); URINE SPECIFIC GRAVITY 1.025 (1.005-1.030); URINE UROBILINOGEN 0.2 E.U./dl (0.2-1.0)
[2020-06-07 10:55] LABS: CALCIUM 9.3 mg/dL (8.5-10.1); POTASSIUM 4.6 mmol/L (3.5-5.1)
[2020-06-07 10:56] LABS: ICTOTEST (BILI CONFIRMATORY) Negative (Negative); URINE BILIRUBIN 1+ (Negative)
[2020-06-07 10:59] LABS: TOTAL BILIRUBIN 1.5 mg/dL (<0.1-1.0); TOTAL PROTEIN 8.3 g/dL (6.4-8.2)
[2020-06-07 11:07] LABS: SQUAMOUS 0-3 Few /LPF (0-3)
[2020-06-07 11:08] LABS: CASTS None Seen /LPF (None Seen); CRYSTALS None Seen /LPF (None Seen); MUCUS 0-3 Light strn/LPF (None Seen); URINE RBC >20 Many /HPF (0-2); URINE WBC-REFLEX 0-5 Rare /HPF (0-5)
--- NOTE | 2020-06-07 14:21 | EKG ---
[place] [address] ELECTROCARDIOGRAM REPORT Name: CAROLINAHARRIET Quinn Francheska Room: [facility]#: [id number] Admission: 06/07/20 Attend Phys: Discharge: Date of : 46 Date of Service: 06/07/20 1055 Report #: [id number] THIS REPORT FOR: //name// [facility] ED Test Date: 2020-06-07 Test Time: 10:55:19 Pat Name: HARRIET FIGUEROA Department: Room: Gender: Dry Talc Racker: : 1950 Requested By: Fei Martines Order Number: [id number] MD: Levar Aguila Measurements Intervals [place] Rate: 72 P: 10 KS: 178 QRS: 37 QRSD: 104 T: 31 QT: 366 QTc: 401 Interpretive Statements Sinus rhythm Compared to ECG 03/05/2018 04:53:54 No significant changes Electronically Signed On 06-07-2020 14:21:40 CDT by Levar Aguila [email or web address] <ELECTRONICALLY SIGNED> By: Levar Aguila MD, [facility] 06/07/20 1421 1055 1055 Levar Aguila MD, FAC /EPI
[2020-06-07 16:42] VITALS: BP 144/80
== END 2020-06-07 16:44 | disposition short-term general hospital (02) ==
LOC: M.ERS 09:58
PROVIDERS: Emergency Medicine Emergency Medical Services
DX: N19 Unspecified kidney failure (principal); N20.0 Calculus of kidney; I10 Essential (primary) hypertension; E11.9 Type 2 diabetes mellitus without complications; Z87.442 Personal history of urinary calculi

== ENCOUNTER 2020-10-29 11:31 | Inpatient (IN) | payer MEDICARE ==
[~2020-10-29] VITALS: Ht 190.5 cm; Wt 185.2 kg
--- NOTE | ~2020-10-29 | CON ---
[facility] [address] [place] [address] CONSULTATION Name: HARRIET FIGUEROA Room: [address] IN .R.#: [id number] Admission: 10/29/20 Attend Phys: Makayla Teresa Discharge: Date of : 46 Report #: [id number] THIS REPORT FOR: cc: Clint Nolasco Meng, Zhao ~ Arakelov, Alexandr V. MD DATE OF SERVICE: 10/30/2020 REQUESTING PHYSICIAN: Dr. Haines. REASON FOR CONSULTATION: Acute kidney injury. HISTORY OF PRESENT ILLNESS: The patient is a very pleasant 70-year-old gentleman who is actually in my office ____. He follows with me for chronic kidney disease stage 3. He has baseline of creatinine around 2. He came in with chief complaints of edema and erythema of left leg. It started several days prior to admission. He was examined and diagnosed with cellulitis. PAST MEDICAL HISTORY: 1. Diabetes mellitus type 2. 2. Hypertension. 3. Obesity. 4. Chronic kidney disease stage 3. FAMILY HISTORY: Noncontributory. SOCIAL HISTORY: No tobacco, no alcohol abuse. MEDICATIONS: Reviewed. REVIEW OF SYSTEMS: Positive for symptoms mentioned earlier. PHYSICAL EXAMINATION: GENERAL: Awake, alert, oriented, in no acute distress. VITAL SIGNS: Blood pressure reviewed and stable. HEENT: Pupils round. NECK: Fatty. LUNGS: Clear. CARDIOVASCULAR: Regular rate. ABDOMEN: Obese, soft. EXTREMITIES: Lower extremities with chronic edema. Left leg has below-knee with some superficial wounds and some cellulitis. ASSESSMENT: [facility] [address] [place] [address] CONSULTATION Name: CAROLINAHARRIET Francheska Room: [address] IN [facility].#: [id number] Admission: 10/29/20 Attend Phys: Makayla Teresa Discharge: Date of : 46 Report #: [id number] 1. Acute kidney injury, resolved. His creatinine came down from 2.5 to 2.0. This is his baseline. 2. Chronic kidney disease stage 3. 3. Diabetes mellitus type 2. 4. Obesity. PLAN: 1. Continue with antibiotics. 2. P.o. hydration. I will sign off ____ baseline. Follow up with me in my office. By: 1144 [id number] George MD /akua
[~2020-10-29 11:31] MED LIST changes: +B-125000 MC1 SUBLING; +DESYREL150 MG PO; +FOLIC ACID1 MG PO; +LEVO-T25 MCG PO; +LISINOPRIL-HCT1 EACH PO; +MAGNESIUM250 M1 PO; +OSTERA TABLET1 EAC1 PO; +PIOGLITAZONE30 MG PO; +TRAMADOL 50 MG50 MG PO
[2020-10-29 11:38] VITALS: BP 128/75
[2020-10-29] MEDS ORDERED: PACERONE100 MG PO (11:59)
[2020-10-29 12:25] LABS: ABSOLUTE BASOPHILS 0.1 thou/uL (0.0-0.2); ABSOLUTE LYMPHOCYTES 1.1 thou/uL (0.8-5.3); ABSOLUTE MONOCYTES 0.8 thou/uL (0.0-1.2); BASOPHILS 0.9 %; EOSINOPHILS 0.4 %; HEMATOCRIT 44.1 % (42.0-52.0); HEMOGLOBIN 15.2 gm/dL (14.0-18.0); LYMPHOCYTES 13.2 %; MCH 30.7 pg (26.0-34.0); MCHC 34.6 g/dL (28.0-37.0); MCV 88.9 fL (80.0-100.0); MONOCYTES 10.5 %; MPV 8.3 fl. (7.2-11.1); NUCLEATED RBCS 0 /100WBC; PLATELET COUNT* 193 thou/uL (150-400); RBC 4.96 mil/uL (4.50-6.00); RDW-CV 14.4 % (10.5-14.5)
[2020-10-29 12:32] LABS: CREATININE 2.5 mg/dL (0.6-1.3); POTASSIUM 4.1 mmol/L (3.5-5.1)
[2020-10-29 12:47] LABS: ALBUMIN 3.5 g/dL (3.4-5.0); TOTAL PROTEIN 8.5 g/dL (6.4-8.2)
[2020-10-29 13:13] LABS: APTT 31.6 Seconds (25.0-31.3); INR 1.1; PROTIME 11.2 Seconds (9.20-11.50)
--- NOTE | 2020-10-29 16:27 | EKG ---
[place] [address] ELECTROCARDIOGRAM REPORT Name: CAROLINAHARRIET Quinn Francheska Room: [place] [address] ADM IN M.R.#: [id number] Admission: 10/29/20 Attend Phys: Cm Haines Discharge: Date of : 46 Date of Service: 10/29/20 1144 Report #: [id number] THIS REPORT FOR: //name// [facility] ED Test Date: 2020-10-29 Test Time: 11:44:03 Pat Name: HARRIET FIGUEROA Department: Room: [facility] Gender: M Evaporator Supervisor: JAROD : 1950 Requested By: Fei Martines Order Number: [id number] MD: Bhavin Robison Measurements Intervals [place] Rate: 80 P: 27 FL: 189 QRS: 48 QRSD: 99 T: 30 QT: 345 QTc: 398 Interpretive Statements Sinus rhythm Compared to ECG 06/07/2020 10:55:19 No significant changes Electronically Signed On 10-29-2020 16:27:38 MARKETING STRATEGIST by Bhavin Robison [email or web address] <ELECTRONICALLY SIGNED> By: Bhavin Robison MD, FACC 10/29/20 1627 1144 1144 Bhavin Robison MD, [facility] /EPI
[2020-10-29 19:27] VITALS: BP 109/52
[2020-10-29 21:32] LABS: ABSOLUTE BASOPHILS 0.1 thou/uL (0.0-0.2); ABSOLUTE EOSINOPHILS 0.1 thou/uL (0.0-0.7); ABSOLUTE LYMPHOCYTES 1.1 thou/uL (0.8-5.3); ABSOLUTE MONOCYTES 0.8 thou/uL (0.0-1.2); ABSOLUTE NEUTROPHILS 6.3 thou/uL (1.6-8.1); BASOPHILS 0.6 %; EOSINOPHILS 0.7 %; HEMATOCRIT 45.3 % (42.0-52.0); HEMOGLOBIN 15.7 gm/dL (14.0-18.0); LYMPHOCYTES 13.4 %; MCH 30.6 pg (26.0-34.0); MCHC 34.6 g/dL (28.0-37.0); MCV 88.5 fL (80.0-100.0); MONOCYTES 9.9 %; MPV 8.1 fl. (7.2-11.1); NUCLEATED RBCS 0 /100WBC; PLATELET COUNT* 201 thou/uL (150-400); POLYS 75.4 %; RBC 5.11 mil/uL (4.50-6.00); RDW-CV 14.5 % (10.5-14.5); WBC 8.3 thou/uL (4.0-11.0)
[2020-10-29 21:32] LABS: URINE BLOOD TRACE (Negative); URINE CLARITY CLEAR; URINE COLOR DARK YELLOW; URINE GLUCOSE-RANDOM NEGATIVE (Negative); URINE KETONES 1+ (Negative); URINE LEUKOCYTES-REFLEX NEGATIVE (Negative); URINE NITRITE-REFLEX NEGATIVE (Negative); URINE PROTEIN 2+ (Negative); URINE SPECIFIC GRAVITY 1.025 (1.005-1.030); URINE UROBILINOGEN 0.2 E.U./dl (0.2-1.0)
[2020-10-29 21:34] LABS: ICTOTEST (BILI CONFIRMATORY) Negative (Negative); URINE BILIRUBIN 2+ (Negative)
[2020-10-29 21:43] LABS: FINE GRANULAR CASTS 0-3 Few /LPF (None Seen); MUCUS >6 Heavy strn/LPF (None Seen); SQUAMOUS 0-3 Few /LPF (0-3); URINE RBC 3-10 Few /HPF (0-2); URINE WBC-REFLEX 6-15 Few /HPF (0-5)
[2020-10-29 21:44] LABS: AMORPHOUS URATES Many /LPF (None Seen); COARSE GRANULAR CASTS 4-10 Moderate /LPF (None Seen)
[2020-10-29 21:50] LABS: CREATININE 2.5 mg/dL (0.6-1.3); POTASSIUM 4.1 mmol/L (3.5-5.1)
[2020-10-29 21:54] LABS: ALBUMIN 3.5 g/dL (3.4-5.0); MAGNESIUM 1.8 mg/dL (1.8-2.4); PHOSPHORUS* 2.2 mg/dL (2.5-4.9); TOTAL PROTEIN 8.6 g/dL (6.4-8.2)
[2020-10-30] VITALS: BP 106/44
[2020-10-30 04:00] VITALS: BP 103/50
[2020-10-30 04:45] LABS: ALBUMIN 3.2 g/dL (3.4-5.0); CALCIUM 9.7 mg/dL (8.5-10.1); CREATININE 2.1 mg/dL (0.6-1.3); POTASSIUM 4.2 mmol/L (3.5-5.1); TOTAL BILIRUBIN 1.8 mg/dL (<0.1-1.0); TOTAL PROTEIN 8.1 g/dL (6.4-8.2)
[2020-10-30 08:00] VITALS: BP 118/56
[2020-10-30 21:09] VITALS: BP 106/62
[2020-10-31] VITALS (7 sets, daily range): BP systolic 82–125; BP diastolic 49–72
[2020-10-31 04:53] LABS: ABSOLUTE EOSINOPHILS 0.2 thou/uL (0.0-0.7); ABSOLUTE LYMPHOCYTES 1.3 thou/uL (0.8-5.3); ABSOLUTE MONOCYTES 0.8 thou/uL (0.0-1.2); ABSOLUTE NEUTROPHILS 4.4 thou/uL (1.6-8.1); BASOPHILS 0.7 %; EOSINOPHILS 2.8 %; HEMATOCRIT 38.8 % (42.0-52.0); LYMPHOCYTES 19.9 %; MCH 30.3 pg (26.0-34.0); MCHC 34.5 g/dL (28.0-37.0); MCV 87.8 fL (80.0-100.0); MONOCYTES 12.1 %; MPV 8.2 fl. (7.2-11.1); NUCLEATED RBCS 0 /100WBC; PLATELET COUNT* 194 thou/uL (150-400); POLYS 64.5 %; RBC 4.42 mil/uL (4.50-6.00); RDW-CV 14.4 % (10.5-14.5); WBC 6.8 thou/uL (4.0-11.0)
[2020-10-31 05:08] LABS: HEMOGLOBIN 13.4 gm/dL (14.0-18.0)
[2020-10-31 05:27] LABS: ALBUMIN 2.9 g/dL (3.4-5.0); CALCIUM 9.4 mg/dL (8.5-10.1); CREATININE 1.7 mg/dL (0.6-1.3); POTASSIUM 3.9 mmol/L (3.5-5.1); TOTAL PROTEIN 7.5 g/dL (6.4-8.2)
[2020-10-31] MEDS ORDERED: NORVASC 2.5 MG2.5 M1 PO (15:51)
[2020-10-31] MEDS ORDERED: LISINOPRIL10 MG PO (15:52)
[2020-11-01 04:00] VITALS: BP 105/79
[2020-11-01 04:58] LABS: HEMATOCRIT 40.7 % (42.0-52.0); HEMOGLOBIN 13.8 gm/dL (14.0-18.0); MCH 30.1 pg (26.0-34.0); MCHC 33.9 g/dL (28.0-37.0); MCV 88.6 fL (80.0-100.0); MPV 8.3 fl. (7.2-11.1); RBC 4.59 mil/uL (4.50-6.00); RDW-CV 14.6 % (10.5-14.5); WBC 6.1 thou/uL (4.0-11.0)
[2020-11-01 05:26] LABS: CALCIUM 9.7 mg/dL (8.5-10.1); CREATININE 1.7 mg/dL (0.6-1.3); POTASSIUM 4.4 mmol/L (3.5-5.1)
[2020-11-01 08:00] VITALS: BP 113/47
[2020-11-01 11:22] VITALS: BP 113/47
[2020-11-01] MEDS ORDERED: KEFLEX500 M2 PO (13:44)
[2020-11-01 14:16] VITALS: BP 113/47
== END 2020-11-01 15:10 | disposition home or self-care (01) | DRG 602 ==
LOC: M.ERS 11:31 → M.2W 15:43 → M.TBA-ER 15:43 → M.2W 17:30
PROVIDERS: Emergency Medicine Emergency Medical Services; Family Medicine; ADMIT Internal Medicine; ATTEND Internal Medicine
DX: L03.116 Cellulitis of left lower limb (principal); N17.0 Acute kidney failure with tubular necrosis; E87.1 Hypo-osmolality and hyponatremia; Z68.43 Body mass index [BMI] 50.0-59.9, adult; I95.9 Hypotension, unspecified; N18.30 Chronic kidney disease, stage 3 unspecified; I12.9 Hypertensive chronic kidney disease with stage 1 through stage 4 chronic kidney disease, or unspecified chronic kidney disease; E11.22 Type 2 diabetes mellitus with diabetic chronic kidney disease; E66.9 Obesity, unspecified; Z20.822 Contact with and (suspected) exposure to COVID-19; M54.9 Dorsalgia, unspecified; M25.511 Pain in right shoulder; N20.0 Calculus of kidney; Z79.82 Long term (current) use of aspirin; Z79.899 Other long term (current) drug therapy; Z79.84 Long term (current) use of oral hypoglycemic drugs; Z28.21 Immunization not carried out because of patient refusal

== ENCOUNTER → 2020-11-04 | Outpatient (CLI) | payer MEDICARE ==
[~2020-11-04] MED LIST changes: +KEFLEX500 M2 PO; +LISINOPRIL10 MG PO; +NORVASC 2.5 MG2.5 M1 PO; +PACERONE100 MG PO
== END ==
LOC: M.ULTRA 10:46
PROVIDERS: ATTEND Internal Medicine
DX: M79.89 Other specified soft tissue disorders (principal)

== ENCOUNTER 2021-04-30 03:54 | Emergency (ER) | payer MEDICARE ==
[~2021-04-30] VITALS: Ht 190.5 cm; Wt 181.4 kg
[2021-04-30] MEDS ORDERED: PRAVASTATIN SOD10 MG PO (04:04)
[2021-04-30] MEDS ORDERED: TRULICITY0.75 MG/0. SUBQ (04:05)
[2021-04-30] MEDS ORDERED: ACETAMINOPHEN-1 EAC2 PO (04:36)
[2021-04-30] MEDS ORDERED: NORFLEX100 MG PO (04:36)
[2021-04-30] MEDS ORDERED: NORCO5 PO (07:28)
[2021-04-30 07:45] VITALS: BP 145/69
== END 2021-04-30 07:54 | disposition home or self-care (01) ==
LOC: M.ERS 03:54
DX: M43.6 Torticollis (principal); I10 Essential (primary) hypertension; E11.9 Type 2 diabetes mellitus without complications; Z87.442 Personal history of urinary calculi; Z79.82 Long term (current) use of aspirin; Z79.899 Other long term (current) drug therapy

== ENCOUNTER 2021-09-01 23:06 | Emergency (ER) | payer MEDICARE ==
[~2021-09-01] VITALS: Ht 190.5 cm; Wt 167.8 kg
[~2021-09-01 23:06] MED LIST changes: +ACETAMINOPHEN-1 EAC2 PO; +NORCO5 PO; +NORFLEX100 MG PO; +PRAVASTATIN SOD10 MG PO; +TRULICITY0.75 MG/0. SUBQ
[2021-09-02] MEDS ORDERED: HYDROCODON-ACE1 EAC8 PO (00:17)
[2021-09-02 00:50] VITALS: BP 190/80
== END 2021-09-02 00:50 | disposition home or self-care (01) ==
LOC: M.ERS 23:06
DX: M62.830 Muscle spasm of back (principal); I10 Essential (primary) hypertension; E11.9 Type 2 diabetes mellitus without complications; Z79.82 Long term (current) use of aspirin; Z79.899 Other long term (current) drug therapy

== ENCOUNTER → 2021-09-02 | Outpatient (CLI) | payer MEDICARE | LOC: M.RAD 14:40 | PROVIDERS: ATTEND Internal Medicine | DX: M47.812 Spondylosis without myelopathy or radiculopathy, cervical region (principal) ==